=== PATIENT | female | born 1990 | race African-American/Black ===

== ENCOUNTER 2020-05-02 10:57 | Emergency (ER) | payer OTHER, SELFPAY ==
--- NOTE | ~2020-05-02 | XR_ITS ---
EXAMINATION: XR wrist RT min 3V DATE: 05/02/2020 12:09 INDICATION: Right wrist pain. TECHNIQUE: 4 views of right wrist were obtained. COMPARISON: None. FINDINGS: Bone alignment is normal. No fracture. There is moderate osteoarthritis at the lunotriquetr al joint. IMPRESSION: 1. Moderate osteoarthritis of lunotriquetral joint. Reviewed, dictated and finalized at location A.
--- NOTE | ~2020-05-02 | XR_ITS ---
EXAMINATION: XR elbow RT min 3V DATE: 05/02/2020 12:09 INDICATION: Right elbow pain. Injury. TECHNIQUE: 4 views of right elbow were obtained. COMPARISON: None. FINDINGS: Bone alignment is normal. No fracture. Joint spaces are well maintained. There is no elbow joint effusion. IMPRESSION: 1. No fracture. Reviewed, dictated and finalized at location A. IMPRESSION: 1. No fracture.
[2020-05-02 11:01] VITALS: BP 143/84; PULSE 98; RESP 20; TEMP 36.4; O2SAT 100
[2020-05-02] MEDS: KETOROLAC (*BKC) 60 MG/2 ML VIAL IM (11:40)
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
[2020-05-02 12:33] VITALS: BP 137/68; PULSE 94; RESP 18; O2SAT 98
== END 2020-05-02 12:38 | disposition home or self-care (01) ==
PROVIDERS: Emergency Provider Emergency Medicine
DX: S49.91XA Unspecified injury of right shoulder and upper arm, initial encounter (principal); M19.031 Primary osteoarthritis, right wrist; X50.9XXA Other and unspecified overexertion or strenuous movements or postures, initial encounter
CPT/HCPCS: 73080; 73110; 96372; 99284; A4565; J1885

== ENCOUNTER 2022-11-30 16:57 | Emergency (ER) | payer OTHER, SELFPAY ==
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
[2022-11-30 17:04] VITALS: BP 128/83; PULSE 79; RESP 16; TEMP 36.8; O2SAT 100
[2022-11-30 20:00] VITALS: BP 136/89; PULSE 90; RESP 19; O2SAT 99
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
[2022-11-30] MEDS: ACETAMINOPHEN 500 MG TABLET 1000 MG PO (21:16)
[2022-11-30] MEDS: KETOROLAC (*BKC) 60 MG/2 ML VIAL IM (21:16)
== END 2022-11-30 21:15 | disposition home or self-care (01) ==
PROVIDERS: Emergency Provider Physician Assistant
DX: S06.0X0A Concussion without loss of consciousness, initial encounter (principal); S16.1XXA Strain of muscle, fascia and tendon at neck level, initial encounter; V49.40XA Driver injured in collision with unspecified motor vehicles in traffic accident, initial encounter
CPT/HCPCS: 70450; 72125; 96372; 99284; A9270; J1885

== ENCOUNTER 2023-02-14 23:37 | Emergency (ER) | payer OTHER, SELFPAY ==
--- NOTE | ~2023-02-14 | XR_ITS ---
EXAMINATION: XR wrist RT min 3V DATE: 02/15/2023 01:33 INDICATION: Right wrist injury and pain. TECHNIQUE: 4 views of right wrist were obtained. COMPARISON: Right wrist radiograph 05/02/2020 FINDINGS: Bone alignment is normal. No fracture. There is moderate osteoarthritis of lunotriquetral j oint. IMPRESSION: 1. Stable moderate osteoarthritis of lunotriquetral joint. Reviewed, dictated and finalized at location A. LINE YARDER
[2023-02-14 23:40] VITALS: BP 120/84; PULSE 77; RESP 18; TEMP 36.1; O2SAT 97
[2023-02-15 01:17] VITALS: BP 116/76; PULSE 80; RESP 16; TEMP 36.1; O2SAT 99
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
[2023-02-15 03:00] VITALS: BP 129/74; PULSE 78; RESP 15; TEMP 36.6; O2SAT 99
== END 2023-02-15 03:01 | disposition home or self-care (01) ==
PROVIDERS: Emergency Provider Emergency Medicine
DX: S63.501A Unspecified sprain of right wrist, initial encounter (principal); X50.9XXA Other and unspecified overexertion or strenuous movements or postures, initial encounter
CPT/HCPCS: 73110; 99283

== ENCOUNTER 2023-10-27 22:50 | Emergency (ER) | payer SELFPAY ==
--- NOTE | ~2023-10-27 | XR_ITS ---
Left wrist Technique: PA, oblique, lateral, and ulnar deviation views were obtained. Clinical History: Injury Findings: No acute fracture or dislocation is seen. Osseous alignment is anatomic. Joint spaces are p reserved. Soft tissues are unremarkable. Impression: Unremarkable left wrist radiographs. Reviewed, dictated and finalized at location . Impression: Unremarkable left wrist radiographs.
--- NOTE | ~2023-10-27 | XR_ITS ---
Right wrist Technique: PA, oblique, lateral, and ulnar deviation views were obtained. Clinical History: Injury Findings: No acute fracture or dislocation is seen. Osseous alignment is anatomic. Joint spaces are p reserved. Soft tissues are unremarkable. Impression: Unremarkable right wrist radiographs. Reviewed, dictated and finalized at location . Impression: Unremarkable right wrist radiographs.
[2023-10-27 22:55] VITALS: BP 106/56; PULSE 72; RESP 18; TEMP 36.3; O2SAT 100
[2023-10-28] MEDS: TETANUS,DIPHTHERIA,AC PERTUSSIS ADULT (0.5 ML) BOOSTRIX IM (01:04)
[2023-10-28] MEDS: KETOROLAC 30 MG/ML VIAL (*BKC) 15 MG IM (01:04)
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
== END 2023-10-28 01:16 | disposition home or self-care (01) ==
LOC: ANHED 10-28 01:07
PROVIDERS: Emergency Provider Emergency Medicine
DX: S63.509A Unspecified sprain of unspecified wrist, initial encounter (principal); S80.211A Abrasion, right knee, initial encounter; V18.0XXA Pedal cycle driver injured in noncollision transport accident in nontraffic accident, initial encounter
CPT/HCPCS: 73110; 90471; 90715; 96372; 99284; J1885

== ENCOUNTER 2023-10-31 20:47 | Emergency (ER) | payer SELFPAY | END 2023-10-31 23:35 | disposition left against medical advice (07) | DX: Z53.21 Procedure and treatment not carried out due to patient leaving prior to being seen by health care provider (principal) | CPT/HCPCS: 99199 ==

== ENCOUNTER 2024-11-28 20:19 | Emergency (ER) | payer SELFPAY ==
--- NOTE | 2024-11-28 20:25 | PC.NURSE ---
2024-PATIENT REGISTERED AND THEN STATED SHE WAS GOING TO CHECK ON MY MOM. PATIENT WALKED BACK DOWN LONG HALL[address]AY.
== END 2024-11-28 21:44 | disposition left against medical advice (07) ==
DX: Z53.21 Procedure and treatment not carried out due to patient leaving prior to being seen by health care provider (principal)
CPT/HCPCS: 99199